=== PATIENT | male | born 1965 | race Caucasian/White ===

== ENCOUNTER 2017-01-20 17:29 | Emergency (ER) | payer OTHER ==
[~2017-01-20] VITALS: Ht 190.5 cm; Wt 95.3 kg
[2017-01-20 17:30] VITALS: BP 162/107
== END 2017-01-20 18:28 | disposition home or self-care (01) ==
LOC: ER 17:29
DX: S30.0XXA Contusion of lower back and pelvis, initial encounter (principal); M25.511 Pain in right shoulder; M25.512 Pain in left shoulder; V49.9XXA Car occupant (driver) (passenger) injured in unspecified traffic accident, initial encounter; Y93.89 Activity, other specified; Y92.89 Other specified places as the place of occurrence of the external cause; Y99.8 Other external cause status